=== PATIENT | female | born 1965 | race Caucasian/White ===

== ENCOUNTER 2019-05-15 12:54 | Day surgery (SDC) | payer BC ==
[~2019-05-15] VITALS: Ht 165.1 cm; Wt 64.0 kg
[~2019-05-15 12:54] MED LIST: ATORVASTATIN; BUPROPION; GABAPENTIN; VALACYCLOVIR
[2019-05-15 14:48] VITALS: Ht 165.1 cm; Wt 64.0 kg
[2019-05-15 15:10] VITALS: BP 134/84; PULSE 81; RESP 18
[2019-05-15] MEDS ORDERED: LIDOCAINE 100 MG SYRINGE ONE (15:31)
[2019-05-15] MEDS ORDERED: PROPOFOL 40 ML ONE (15:31)
[2019-05-15] MEDS ORDERED: FENTAnyl 50 MCG/ML VIAL ONE (15:32)
[2019-05-15] MEDS ORDERED: ONDANSETRON 4 MG INJ ONE (16:20)
[2019-05-15] MEDS ORDERED: FENTAnyl 50 MCG/ML VIAL IV PRN ×2 (16:30)
[2019-05-15] MEDS ORDERED: OXYCODONE/ACETAMINOPHEN (5/325) TAB PO PRN ×2 (16:30)
[2019-05-15] MEDS ORDERED: LABETALOL HCL 20MG INJ IV PRN (16:30)
[2019-05-15] MEDS ORDERED: ONDANSETRON 4 MG INJ IV PRN (16:30)
[2019-05-15] MEDS ORDERED: MEPERIDINE 25 MG INJ IV PRN (16:30)
[2019-05-15 16:42] VITALS: BP 120/74; RESP 18
== END 2019-05-15 17:57 | disposition home or self-care (01) ==
LOC: GIL 12:54
PROVIDERS: ATTEND Internal Medicine Gastroenterology
DX: K57.30 Diverticulosis of large intestine without perforation or abscess without bleeding (principal); K64.8 Other hemorrhoids; K20.9 Esophagitis, unspecified; K29.70 Gastritis, unspecified, without bleeding
CPT/HCPCS: 43239; 45378; 88305; 88312; 88313; J2001; J2405; J3010; Z7610